=== PATIENT | female | born 1965 | race Caucasian/White ===

== ENCOUNTER → 2017-03-03 | Outpatient (CLI) | payer OTHER ==
--- NOTE | 2017-03-03 14:01 | KCIC ---
DATE: 03/03/2017 EXAM: MAMMO ISAIAH JOSE BRENNERAT, BREAST RIGHT HISTORY: Right breast lump COMPARISON: None available The breast parenchyma is heterogeneously dense, which could reduce sensitivity of mammography. Breast parenchyma level C. FINDINGS: 2-D and 3-D tomosynthesis imaging was performed in CC and MLO projections. A skin marker was placed over the area of reported palpable concern laterally in the right breast. At the level of the skin marker there is an 8 mm smooth nodule with a sonolucent hilum compatible with a benign intramammary lymph node. A cluster of smaller smooth nodules is noted at the same level in the left breast. No other unusual breast densities are seen. Minimal benign type calcifications are noted. No suspicious microcalcifications are evident. Right breast ultrasound, 03/03/2017: A targeted ultrasound exam of the right breast was performed in the area of palpable concern at the 10:00 location. There is a 10 mm hypoechoic nodule with an echogenic hilum. The margins are smooth. The appearance is compatible with a benign intramammary lymph node. No other abnormality is seen in this region. IMPRESSION: 1. The area of palpable concern corresponds to a benign-appearing intramammary lymph node. 2. No mammographic evidence of malignancy in either breast. BI-RADS CATEGORY: 2 BENIGN FINDING(S) RECOMMENDED FOLLOW-UP: 12M 12 MONTH FOLLOW-UP PQRS compliance statement: Patient information was entered into a reminder system with a target due date for the next mammogram. Mammography is a sensitive method for finding small breast cancers, but it does not detect them all and is not a substitute for careful clinical examination. A negative mammogram does not negate a clinically suspicious finding and should not result in delay in biopsying a clinically suspicious abnormality. "Our facility is accredited by the [employer] Mammography Program."
== END | disposition home or self-care (01) ==
LOC: KCIC MAMMO 12:47
PROVIDERS: ATTEND Obstetrics & Gynecology
DX: N63 Unspecified lump in breast (principal)
CPT/HCPCS: 76641; G0204; G0279; 77062; 77066